=== PATIENT | male | born 1945 | race Caucasian/White ===

== ENCOUNTER 2019-06-26 12:32 | Outpatient (CLI) | payer MEDICARE, BC ==
--- NOTE | 2019-06-26 12:54 | RAD ---
2 views of the chest: 06/26/2019 COMPARISON: 06/08/2019 HISTORY: Paroxysmal atrial fibrillation FINDINGS: Midline sternotomy wires and mediastinal clips are present. There is no pneumothorax seen. There is increased linear interstitial density and pulmonary hyperinflation. There are small bilateral pleural effusions. There is pulmonary vascular congestion. IMPRESSION: Pulmonary basilar congestion with interstitial prominence and small bilateral pleural eff usions, suspicious for pulmonary edema. Follow-up imaging following treatment advised to document resolution.
[2019-06-26 13:38] LABS: ALT (SGPT) 38 U/L (8-55); AST (SGOT) 48 U/L (5-34); Alkaline Phosphatase 127 U/L (40-150); Anion Gap 18 mmol/L (10-20); BUN (Urea Nitrogen) 46 mg/dL (8.4-25.7); Bilirubin, Total 0.4 mg/dL (0.2-1.2); Calc. Creatinine Clearance 0 mL/min (70-130); Calcium 9.4 mg/dL (7.8-10.44); Carbon Dioxide 26 mmol/L (23-31); Cardiac Risk 2.9 (Less than 4.5); Chloride 99 mmol/L (98-107); Cholesterol 127 mg/dl (< 200 Desired); Estimated GFR-MDRD 24; Globulin 3.5 g/dL (2.4-3.5); Glucose 109 mg/dL (83-110); HDL Cholesterol 44 mg/dL (>60 Neg Risk); LDL Cholesterol, Calculated 62 mg/dL; Potassium 4.5 mmol/L (3.5-5.1); Protein, Total 7.5 g/dL (5.8-8.1); Sodium 138 mmol/L (136-145); Triglycerides 103 mg/dL (Less than 150)
== END 2019-06-26 12:33 | disposition home or self-care (01) ==
LOC: MADLAB 12:32
PROVIDERS: ATTEND Internal Medicine Cardiovascular Disease
DX: E78.00 Pure hypercholesterolemia, unspecified (principal); I42.8 Other cardiomyopathies; I48.0 Paroxysmal atrial fibrillation; J90 Pleural effusion, not elsewhere classified; R09.89 Other specified symptoms and signs involving the circulatory and respiratory systems
CPT/HCPCS: 36415; 71046; 80053; 80061

== ENCOUNTER 2019-09-16 18:50 | Emergency (ER) | payer MEDICARE, BC ==
--- NOTE | 2019-09-16 19:24 | RAD ---
EXAM: Portable chest PROVIDED CLINICAL HISTORY: Altered mental status COMPARISON: 06/26/2019 FINDINGS: Cardiac and mediastinal silhouette is within normal limits. No focal consolidation, pleural fluid or pneumothorax evident. Median sternotomy changes and vascular calcification are again seen. IMPRESSION: No evidence for an acute cardiopulmonary process.
--- NOTE | 2019-09-16 19:28 | CT ---
EXAM: CT Brain WO Con PROVIDED CLINICAL HISTORY: Altered mental status COMPARISON: None FINDINGS: There is a slightly hyperdense 2.1 cm mass present within the medial left temporal lobe with surround ing vasogenic edema. The ventricular system is nondilated. Chronic microvascular ischemic changes are seen involving the cerebral white matter. The extracranial soft tissues and osseous structures ap pear unremarkable. 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 Hyperdensity could reflect associated hemorr diogo. Correlation with MRI brain recommended.
[2019-09-16 19:39] LABS: ALT (SGPT) 10 U/L (8-55); AST (SGOT) 28 U/L (5-34); Albumin 4.3 g/dL (3.4-4.8); Alkaline Phosphatase 77 U/L (40-110); Anion Gap 20 mmol/L (10-20); BUN (Urea Nitrogen) 26 mg/dL (8.4-25.7); Band 3 % (5-11); Bilirubin, Total 0.8 mg/dL (0.2-1.2); Calc. Creatinine Clearance 0 mL/min (70-130); Carbon Dioxide 21 mmol/L (23-31); Chloride 99 mmol/L (98-107); Eosinophils 1 % (0-10); Estimated GFR-MDRD 29; Globulin 3.2 g/dL (2.4-3.5); Glucose 68 mg/dL (83-110); Hemoglobin 11.9 g/dL (14.0-18.0); Lymphocytes 16 % (21-51); MDiff Complete? YES; Mean Corpuscular HGB CONC 31.6 g/dL (32.0-36.0); Mean Corpuscular Hemoglobin 31.2 pg (27.0-31.0); Mean Corpuscular Volume 98.7 fL (78.0-98.0); Monocytes 8 % (0-10); Neutrophil 72 % (42-75); Platelet Count 183 thou/uL (130-400); Platelet Morphology Comment Appears Adequate; Potassium 4.4 mmol/L (3.5-5.1); Protein, Total 7.5 g/dL (5.8-8.1); RBC Distribution Width 14.2 % (11.5-14.5); Red Blood Cell (RBC) Count 3.82 mill/uL (4.70-6.10); Sodium 136 mmol/L (136-145); White Blood Cell (WBC) Count 9.8 thou/uL (4.8-10.8)
[2019-09-16] MEDS ORDERED: Dexamethasone 10 MG/ML VIAL ONE (19:43)
[2019-09-16] MEDS ORDERED: Sodium Chloride 0.9% 1,000 ML ONE (19:49)
[2019-09-16 19:52] LABS: Prothrombin Time 13.1 SEC (12.0-14.7)
[2019-09-16 19:54] LABS: PTT 20.1 SEC (22.9-36.1)
[2019-09-16 19:56] LABS: CKMB 1.9 ng/mL (0-6.6)
== END 2019-09-16 20:43 | disposition short-term general hospital (02) ==
LOC: MADERS 18:50
DX: G93.9 Disorder of brain, unspecified (principal); J44.9 Chronic obstructive pulmonary disease, unspecified; F17.210 Nicotine dependence, cigarettes, uncomplicated; Z79.82 Long term (current) use of aspirin; Z79.899 Other long term (current) drug therapy; Z79.51 Long term (current) use of inhaled steroids
CPT/HCPCS: 70450; 71045; 80053; 82140; 82553; 83605; 84484; 85025; 85610; 85730; 87040; 93005; 96361; 96374; J1100; J7050